=== PATIENT | male | born 1990 | race Caucasian/White ===

== ENCOUNTER → 2022-11-15 15:01 | Outpatient (ROUT) | payer BC, SELFPAY ==
[2022-11-15 15:10] LABS: Prothrombin Time 11.8 SECONDS (10.1-12.7)
[2022-11-15 15:13] LABS: PTT Partial Thromboplastin Tim 33 SECONDS (26-36)
== END ==
PROVIDERS: Visit Provider Registered Nurse
DX: L60.8 Other nail disorders (principal)
CPT/HCPCS: 85610; 85730

== ENCOUNTER → 2022-12-06 06:58 | Outpatient (CLI) | payer BC, SELFPAY ==
--- NOTE | 2022-12-06 | DI.ECHO.S_ITS ---
[facility]---------+ [facility] +---------+ : : [address] : : : : [id number] : : : : Phone: [phone] +---------+ Echocardiogram Report + + :Name: NICKI SINGLETON Study Date: 12/06/2022 Height: 70 in : :[facility] ReadingLocation: Weight: 175 lb : : Gender: Male BSA: 2.0 m2 : :: 1990 Age: 32 yrs BP: 158/97 mmHg: :Reason For Study: NAIL DISORDER, RULE OUT ENDOCARDITIS : :Ordering Physician: BERT, : :AZRA Performed By: Linda Vega : :Referring: AZRA NOEL : + + Interpretation Summary The left ventricle is normal in size. Left ventricular systolic function appears normal without focal wall motion abnormalities. The ejection fraction is estimated to be 60-65%. Diastolic parameters suggest probable normal left ventricular diastolic function and normal filling pressures. The right ventricle is normal in size and function. The left atrial size is normal. Right atrial size is normal. There is no significant valvular heart disease. No obvious evidence for active or prior endocarditis. The aortic root is normal size. Procedure: A two-dimensional transthoracic echocardiogram with color flow and Doppler was performed. The study quality was technically adequate. There is no prior echocardiogram noted for this patient. The patient was in sinus rhythm with heart rates between 73-85 bpm during the exam. Left Ventricle: The left ventricle is normal in size. There is normal left ventricular wall thickness. Left ventricular systolic function appears normal without focal wall motion abnormalities. The ejection fraction is estimated to be 60-65%. Diastolic parameters suggest probable normal left ventricular diastolic function and normal filling pressures. Right Ventricle: The right ventricle is normal in size and function. Atria: The left atrial size is normal. Right atrial size is normal. The interatrial septum grossly appears intact with no obvious evidence for an atrial septal defect. Mitral Valve: The mitral valve is normal in structure and function. There is trace mitral regurgitation. Aortic Valve: The aortic valve is trileaflet. The aortic valve opens well. There is no aortic valve stenosis. No aortic regurgitation is present. Tricuspid Valve: The tricuspid valve is normal in structure and function. No tricuspid regurgitation. Pulmonic Valve: The pulmonic valve is not well seen, but is grossly normal. There is trace pulmonic regurgitation. There is no significant valvular heart disease. Great Vessels: The aortic root is normal size. The ascending aorta could not be visualized. The IVC is of normal diameter and collapses greater than 50% with a sniff. This suggests a low right atrial pressure of 3 mm Hg. Pericardium/ Pleura There is no pericardial effusion. There is no pleural effusion. MMode/2D Measurements & Calculations LVIDd: 5.3 cm LVOT diam: 2.2 cm LVIDs: 3.3 cm Ao root diam: 3.4 cm FS: 38.7 % Ao Arch Diam (Prox Trans): 2.8 cm EPSS: 0.62 cm IVSd: 0.63 cm LVPWd: 0.70 cm LV zamarripa. diameter/BSA (cm/m^2): 2.7 LV sys. diameter/BSA (cm/m^2): 1.7 LA A2 area: 17.3 cm2 RA long axis: 4.4 cm LA A4 area: 15.6 cm2 RA area: 10.6 cm2 LA length (vol): 4.6 cm RA vol: 21.6 ml LA vol: 50.2 ml RA : 11.0 ml/m2 LA vol index: 25.5 ml/m2 IVC diam: 1.4 cm RVD1 (basal): 3.2 cm RVD2 (mid): 2.6 cm TAPSE: 2.2 cm Doppler Measurements & Calculations Ao V2 max: 167.1 cm/sec LVOT Max Jigar: 128.9 cm/sec Ao V2 mean: 123.8 cm/sec LV V1 max P.7 mmHg Ao max P.2 mmHg LV V1 VTI: 24.1 cm Ao mean P.6 mmHg STELLA(I,D): 3.1 cm2 Ao V2 VTI: 30.6 cm STELLA(V,D): 3.0 cm2 sev ratio: 0.79 STELLA indexed to BSA (cm^2/m^2): 1.6 MV E max jigar: 57.2 cm/sec PA V2 max: 148.2 cm/sec MV A max jigar: 57.7 cm/sec PA V2 mean: 111.4 cm/sec MV E/A: 0.99 PA mean P.4 mmHg Med Peak E' Jigar: 11.4 cm/sec E/E' med: 5.0 Lat Peak E' Jigar: 15.6 cm/sec E/E' lat: 3.7 E/e' average: 4.3 MV dec time: 0.20 sec SV(LVOT): 93.7 ml Reading Physician:08:57 AM
== END ==
PROVIDERS: PCP Registered Nurse; Referring Provider Registered Nurse; Visit Provider Registered Nurse
DX: Z13.6 Encounter for screening for cardiovascular disorders (principal); L60.8 Other nail disorders
CPT/HCPCS: 93306